=== PATIENT | female | born 1980 | race Caucasian/White ===

== ENCOUNTER 2016-11-07 16:11 | Emergency (ER) | payer BC, OTHER ==
[~2016-11-07] VITALS: Ht 167.6 cm; Wt 60.4 kg
[2016-11-07 16:13] VITALS: BP 143/111; PULSE 118; RESP 20; TEMP 98.5; O2SAT 97
[2016-11-07] MEDS ORDERED: SODIUM CHLORIDE 0.9% FLUSH 10 ML FLUSH IV FLUSH PRN (16:30)
[2016-11-07] MEDS ORDERED: ONDANSETRON HCL 4 MG/2 ML VIAL IVP ONE (16:30)
[2016-11-07] MEDS ORDERED: MORPHINE SULFATE 4 MG/ML INJ IV ONE (16:30)
[2016-11-07] MEDS ORDERED: SODIUM CHLOR 0.9% 1000 ML INJ 1,000 ML IV SCH (16:30)
[2016-11-07] MEDS ORDERED: METHOCARBAMOL 500 MG TAB PO ONE (16:30)
[2016-11-07] MEDS ORDERED: BIRTH CONTROL PILLS PO (16:31)
[2016-11-07] MEDS ORDERED: ZOLO100T PO (16:31)
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
[2016-11-07 16:56] LABS: BASOPHIL # 0.1 TH/MM3 (0-0.2); EOSINOPHIL # 0.1 TH/MM3 (0-0.4); EOSINOPHIL % 1.2 % (0.0-4.0); HEMATOCRIT 38.5 % (35.0-46.0); HEMO FLAGS DIFF FINAL; LYMPH % 22.9 % (9.0-44.0); LYMPHOCYTE # 1.3 TH/MM3 (1.0-4.8); MEAN CORPUSCULAR HEMOGLOBIN 34.6 PG (27.0-34.0); MONO % 4.9 % (0.0-8.0); PLATELET COUNT 177 TH/MM3 (150-450); RED BLOOD COUNT 3.89 MIL/MM3 (4.00-5.30); RED CELL DISTRIBUTION WIDTH 12.6 % (11.6-17.2); WHITE BLOOD COUNT 5.8 TH/MM3 (4.0-11.0)
[2016-11-07 17:04] LABS: CHLORIDE 109 MEQ/L (98-107); POTASSIUM 3.6 MEQ/L (3.5-5.1); SODIUM (NA) 141 MEQ/L (136-145)
[2016-11-07 17:08] LABS: ANION GAP 8 MEQ/L (5-15); BICARBONATE 23.7 MEQ/L (21.0-32.0); BLOOD UREA NITROGEN 13 MG/DL (7-18)
[2016-11-07 17:09] LABS: APTT (PATIENT) 26.3 SEC (24.3-30.1); INTERNATIONAL NORMALIZED RATIO 0.9 RATIO; PROTHROMBIN TIME - PATIENT 10.1 SEC (9.8-11.6)
[2016-11-07 17:11] VITALS: RESP 18; O2SAT 98
[2016-11-07 17:11] LABS: ALT (GPT) 24 U/L (10-53); AST (GOT) 21 U/L (15-37); GLOMERULAR FILTRATION RATE 75 ML/MIN (>89)
[2016-11-07 17:12] LABS: TOTAL BILIRUBIN ADULT 0.4 MG/DL (0.2-1.0)
[2016-11-07 17:14] LABS: ALKALINE PHOSPHATASE 78 U/L (45-117)
[2016-11-07 17:16] LABS: BETA HCG QUANT LESS THAN 1 MIU/ML (0-5)
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
[2016-11-07 17:47] VITALS: BP 166/92; PULSE 84; RESP 18; O2SAT 96
[2016-11-07] MEDS ORDERED: IOHEXOL 350 MG/ML 10 ML VIAL (for RAD DIAG) IV ONE (17:52)
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
[2016-11-07] MEDS ORDERED: ROBA500T PO (18:26)
[2016-11-07] MEDS ORDERED: PERC5TAB12 PO (18:26)
[2016-11-07 18:37] VITALS: BP 166/90; PULSE 90; RESP 18; O2SAT 98
== END 2016-11-07 18:52 | disposition home or self-care (01) ==
LOC: PHED 16:11
DX: S16.1XXA Strain of muscle, fascia and tendon at neck level, initial encounter (principal); V89.2XXA Person injured in unspecified motor-vehicle accident, traffic, initial encounter; Y92.410 Unspecified street and highway as the place of occurrence of the external cause; R01.1 Cardiac murmur, unspecified; F17.210 Nicotine dependence, cigarettes, uncomplicated
CPT/HCPCS: 71260; 72125; 72128; 72131; 73590; 73630; 74177; 80053; 84702; 85025; 85610; 85730; 96361; 96374; 96375; 99285; J2270; J2405; J7030; L0150; Q9967